=== PATIENT | male | born 1980 | race African-American/Black ===

== ENCOUNTER 2016-04-22 16:22 | Emergency (ER) | payer OTHER ==
[~2016-04-22] VITALS: Ht 182.9 cm; Wt 79.8 kg
[2016-04-22 16:30] VITALS: BP 114/66
[2016-04-22 16:35] VITALS: BP 114/66
--- NOTE | 2016-04-22 18:55 | Emergency Room Report ---
History of Present Illness General Chief Complaint: General Complaint Source: Patient Present Illness HPI Patient is a 35-year-old male presented after increased fever and generalized body aches. Patient had prior history of multiple myeloma. Patient with had workup done by his primary care physician Dr. Larson. The patient was sent in for flu testing. Patient denied any had lymph nodes. He had not been vomiting. He denies dizziness or lightheadedness. Allergies: Coded Allergies: No Known Allergies (Unverified , 04/22/16) Patient History Past Medical History: see triage record Reviewed Nursing Documentation: PMH: Agreed, PSxH: Agreed Nursing Documentation-PMH Past Medical History: No History, Except For Hx Cancer: Yes - multiple myeloma Review of Systems All Other Systems: negative except mentioned in HPI Physical Exam Vital Signs Date Time Temp Pulse Resp B/P Pulse Ox O2 Delivery O2 Flow Rate FiO2 04/22/16 16:27 99.1 81 16 114/66 97 Room Air General Appearance: well appearing, no apparent distress, alert, GCS 15 Head: normocephalic, atraumatic ENT: hearing grossly normal, normal voice Neck: full range of motion, supple Respiratory: no respiratory distress, speaking full sentences Cardiovascular #1: normal inspection, regular rate, rhythm Gastrointestinal: normal inspection, non tender, soft Musculoskeletal: normal inspection, back normal, no calf tenderness Neurologic: normal inspection, alert, oriented x3, responsive, normal gait Psychiatric: mood/affect normal Skin: no rash Medical Decision Making Diagnostic Impression: Primary Impression: Viral syndrome ER Course Patient presented for fever. Differential diagnosis included was not limited to sepsis, viral illness, upper respiratory infection, meningitis among others. Patient's benign exam and does not appear to require any further imaging or laboratory testing at this time. Influenza testing was performed and showed negative influenza A and B.Results were given to Dr. Larson. The patient is advised to follow up with primary care doctor in 1-2 days. Patient is advised to return if any worsening condition or if any changes in status that are concerning. Last Vital Signs Date Time Temp Pulse Resp B/P Pulse Ox O2 Delivery O2 Flow Rate FiO2 04/22/16 16:35 99.1 16 114/66 97 Room Air 04/22/16 16:27 81 Status: unchanged Disposition: HOME, SELF-CARE Condition: Stable Referrals: ADRIENNE WILKINS (PCP) Patient Instructions: Viral Respiratory Infection Ethan Holder Apr 22, 2016 18:55
== END 2016-04-22 19:35 | disposition home or self-care (01) ==
LOC: EMR 16:38
DX: B34.9 Viral infection, unspecified (principal); C90.00 Multiple myeloma not having achieved remission
CPT/HCPCS: 86710; 99283